=== PATIENT | male | born 1990 | race Caucasian/White ===

== ENCOUNTER 2020-07-06 19:49 | Emergency (ER) | payer MEDICAID, OTHER ==
[~2020-07-06] VITALS: Ht 190.5 cm; Wt 77.1 kg
--- NOTE | 2020-07-06 19:55 | NUR ---
PT BIBRA C/O N/V AND ABD PAIN X2 DAYS. PT AAOX4, BREATHING EVENLY AND UNLABORED.. PT STATES THAT THE MID UPPER ABD HURST THE MOST. PT SKIN WARM, DRY, AND INTACT. PT ATTACHED TO MONITOR AND POX. RIGHT AC 20G INITIATED. BLOOD OBTAINED AND SENT TO LAB. PT GIVEN BLANKET AND CALLLIGHT WITHIN REACH.
[2020-07-06] MEDS ORDERED: LORAZEPAM INJ 2 MG/ML VIAL IV ONE (20:00)
[2020-07-06] MEDS ORDERED: ONDANSETRON HCL/PF 4 MG/2 ML VIAL IVP ONE (20:00)
[2020-07-06] MEDS ORDERED: IV NS 0.9% 1,000 ML BAG IV ONE (20:00)
[2020-07-06] MEDS ORDERED: ONDANSETRON HCL/PF 4 MG/2 ML VIAL ONE (20:11)
[2020-07-06] MEDS ORDERED: LORAZEPAM INJ 2 MG/ML VIAL ONE (20:11)
[2020-07-06 20:47] LABS: BASOPHILS % (AUTO) 0.2 % (0.0-2.0); HEMATOCRIT 46 % (39-51); HEMOGLOBIN 14.5 g/dL (13.5-17.5); LYMPHOCYTES # (AUTO) 1.4 /CMM (0.8-4.8); LYMPHOCYTES % (AUTO) 16.6 % (20.0-44.0); MEAN CORPUSCULAR HGB CONC 32 g/dl (31.0-36.0); MEAN CORPUSCULAR VOLUME 83 fL (80-96); MONOCYTES # (AUTO) 0.9 /CMM (0.1-1.30); MONOCYTES % (AUTO) 11.6 % (2.0-12.0); NEUTROPHILS # (AUTO) 5.8 /CMM (1.8-8.9); NEUTROPHILS % (AUTO) 71.6 % (43.0-81.0); PLATELET COUNT (AUTO) 178 /CMM (150-450); WHITE BLOOD COUNT (AUTO) 8.1 K/uL (4.3-11.0)
[2020-07-06 21:01] LABS: CREATININE 1.4 mg/dL (0.6-1.3); POTASSIUM 3.6 mmol/L (3.5-5.1)
[2020-07-06 21:08] LABS: ALBUMIN 4.9 g/dL (3.4-5.0); BILIRUBIN,DIRECT 0.2 mg/dL (0.0-0.2); BILIRUBIN,TOTAL 0.6 mg/dL (0.2-1.0); TOTAL PROTEIN, SERUM 9.6 g/dL (6.4-8.2)
[2020-07-06] MEDS ORDERED: DICYCLOMINE HCL 10 MG CAPSULE PO ONE ×2 (21:30→21:37)
[2020-07-06] MEDS ORDERED: OMEP40CA13 PO ×2 (22:09→22:11)
[2020-07-06] MEDS ORDERED: ONDA4TAB11 PO ×2 (22:09→22:11)
[2020-07-06] MEDS ORDERED: DICY10CA13 PO ×2 (22:09→22:11)
--- NOTE | 2020-07-06 23:02 | NUR ---
Patient discharged to home in stable condition. Written and verbal after care instructions given. Patient verbalizes understanding of instruction. IV removed. Catheter intact and site benign. Pressure and 4x4 applied to site. No bleeding noted. Pt ambulatory with a steady gait
[2020-07-06 23:10] VITALS: BP 130/96
== END 2020-07-06 23:02 | disposition home or self-care (01) ==
LOC: ER 19:53
DX: K29.20 Alcoholic gastritis without bleeding (principal); F10.10 Alcohol abuse, uncomplicated; R11.2 Nausea with vomiting, unspecified; F12.90 Cannabis use, unspecified, uncomplicated; F41.9 Anxiety disorder, unspecified; Z79.899 Other long term (current) drug therapy; Y90.9 Presence of alcohol in blood, level not specified
CPT/HCPCS: 36415; 76705; 80048; 80076; 83690; 85025; 85730; 96361; 96374; 96375; 99284; J2060; J2405; J7030

== ENCOUNTER 2020-07-10 16:02 | Emergency (ER) | payer MEDICAID ==
[~2020-07-10] VITALS: Ht 182.9 cm; Wt 73.9 kg
[~2020-07-10 16:02] MED LIST: DICY10CA13 PO; OMEP40CA13 PO; ONDA4TAB11 PO
[2020-07-10] MEDS ORDERED: PANTOPRAZOLE 40 MG VIAL IV ONE (16:30)
[2020-07-10] MEDS ORDERED: ONDANSETRON HCL/PF - ER 4 MG/2 ML VIAL IV ONE (16:30)
[2020-07-10] MEDS ORDERED: KETOROLAC TROMETHAMINE INJ 30 MG/ML VIAL IV ONE (16:30)
[2020-07-10] MEDS ORDERED: IV NS 0.9% 1,000 ML IV ONE (16:30)
[2020-07-10 16:34] LABS: BASOPHILS # (AUTO) 0.1 /CMM (0.0-0.2); BASOPHILS % (AUTO) 0.9 % (0.0-2.0); HEMATOCRIT 42 % (39-51); HEMOGLOBIN 13.6 g/dL (13.5-17.5); LYMPHOCYTES # (AUTO) 0.5 /CMM (0.8-4.8); LYMPHOCYTES % (AUTO) 7.2 % (20.0-44.0); MEAN CORPUSCULAR HGB CONC 32 g/dl (31.0-36.0); MEAN CORPUSCULAR VOLUME 83 fL (80-96); MONOCYTES # (AUTO) 0.5 /CMM (0.1-1.30); MONOCYTES % (AUTO) 6.8 % (2.0-12.0); NEUTROPHILS # (AUTO) 6.4 /CMM (1.8-8.9); NEUTROPHILS % (AUTO) 85.1 % (43.0-81.0); PLATELET COUNT (AUTO) 195 /CMM (150-450); RED BLOOD CELL COUNT(AUTO) 5.07 MIL/uL (4.5-6.0); WHITE BLOOD COUNT (AUTO) 7.5 K/uL (4.3-11.0)
[2020-07-10] MEDS ORDERED: KETOROLAC TROMETHAMINE 15 MG/ML VIAL ONE (16:37)
[2020-07-10] MEDS ORDERED: PANTOPRAZOLE 40 MG VIAL ONE (16:37)
[2020-07-10] MEDS ORDERED: ONDANSETRON HCL/PF 4 MG/2 ML VIAL ONE (16:37)
--- NOTE | 2020-07-10 17:11 | NUR ---
THE PATIENT REFUSES TO GIVE URINE SPECIMEN DESPITE EXPLIANING RISKS AND BEMEFITS.
[2020-07-10 17:16] LABS: ALCOHOL, BLOOD < 3 mg/dL (0-0)
[2020-07-10 17:29] LABS: ALANINE AMINOTRANSFERASE 134 U/L (12-78); ALBUMIN 4.6 g/dL (3.4-5.0); ALKALINE PHOSPHATASE 66 U/L (46-116); ASPARTATE AMINOTRANSFERASE 149 U/L (15-37); BILIRUBIN,DIRECT 0.2 mg/dL (0.0-0.2); BILIRUBIN,TOTAL 0.6 mg/dL (0.2-1.0); CALCIUM, SERUM 9.7 mg/dL (8.5-10.1); CARBON DIOXIDE 26 mmol/L (21-32); CHLORIDE 98 mmol/L (98-107); GLUCOSE 108 mg/dL (74-106); LIPASE 111 U/L (73-393); POTASSIUM 4.7 mmol/L (3.5-5.1); SODIUM SERUM 136 mmol/L (136-145); TOTAL PROTEIN, SERUM 8.9 g/dL (6.4-8.2); UREA NITROGEN, BLOOD 19 mg/dL (7-18)
--- NOTE | 2020-07-10 17:37 | NUR ---
DR ROSAS IS MADE AWARE OF GENERALIZED BODY PAIN OF 01/28. STATED THAT HE WILL ENTER ORDERS.
[2020-07-10] MEDS ORDERED: METOCLOPRAMIDE HCL 10 MG/2 ML VIAL ONE (17:38)
--- NOTE | 2020-07-10 17:50 | NUR ---
Kumar carl in ED - 07/10/20 at 1750 by APOLLO CIRILO GARCIA DONE AND TAKEN IT TO THE LAB.
[2020-07-10] MEDS ORDERED: LORAZEPAM INJ 2 MG/ML VIAL ONE (17:53)
[2020-07-10] MEDS ORDERED: METOCLOPRAMIDE HCL 10 MG/2 ML VIAL IV ONE (18:00)
[2020-07-10] MEDS ORDERED: LORAZEPAM INJ 2 MG/ML VIAL IV ONE (18:00)
[2020-07-10] MEDS ORDERED: PANT20TA2 PO (18:16)
[2020-07-10] MEDS ORDERED: ONDA4TAB5 PO (18:16)
[2020-07-10] MEDS ORDERED: IBUP-1955 PO (18:17)
[2020-07-10 19:02] VITALS: BP 132/76
--- NOTE | 2020-07-10 19:02 | NUR ---
Patient alert and oriented x4. Patient discharged to home in stable condition. Written and verbal after care instructions given. Patient verbalizes understanding of instruction. The patient left ER in stable condition.
== END 2020-07-10 19:03 | disposition home or self-care (01) ==
LOC: ER 16:02
DX: F19.239 Other psychoactive substance dependence with withdrawal, unspecified (principal); E86.0 Dehydration; R11.2 Nausea with vomiting, unspecified; F41.9 Anxiety disorder, unspecified; F10.10 Alcohol abuse, uncomplicated; F17.200 Nicotine dependence, unspecified, uncomplicated; Y90.0 Blood alcohol level of less than 20 mg/100 ml; Z79.899 Other long term (current) drug therapy
CPT/HCPCS: 36415; 80048; 80076; 80320; 83690; 85025; 93005; 96361; 96374; 96375; 99284; C9113; J1885; J2060; J2405 ×2; J2765; J7030; G0480